=== PATIENT | female | born 1965 | race Two or more races ===

== ENCOUNTER 2022-04-16 08:25 | Day surgery (SDC) | payer OTHER | END 2022-04-16 21:50 | disposition home or self-care (01) | LOC: CIR.AMB 08:25 | PROVIDERS: ATTEND Obstetrics & Gynecology | DX: N84.0 Polyp of corpus uteri (principal); Z20.822 Contact with and (suspected) exposure to COVID-19; E78.5 Hyperlipidemia, unspecified; J45.909 Unspecified asthma, uncomplicated ==